=== PATIENT | female | born 1995 | race Caucasian/White ===

== ENCOUNTER 2017-10-09 03:48 | Inpatient (IN) | payer OTHER ==
[~2017-10-09] VITALS: Ht 157.5 cm; Wt 73.5 kg
[2017-10-09] MEDS ORDERED: SYMBICORT 80/10.2 GM (04:02)
== END 2017-10-15 19:30 | disposition home or self-care (01) | DRG 194 ==
LOC: ER 03:48 → SEC-K 15:49 → MEDI 21:00
PROC: 3E0F7GC Introduction of Other Therapeutic Substance into Respiratory Tract, Via Natural or Artificial Opening (ICD-10-PCS; principal; 2017-10-09)
PROC: 4A033R1 Measurement of Arterial Saturation, Peripheral, Percutaneous Approach (ICD-10-PCS; 2017-10-09)
PROC: B54DZZZ Ultrasonography of Bilateral Lower Extremity Veins (ICD-10-PCS; 2017-10-09)
PROC: CB121ZZ Planar Nuclear Medicine Imaging of Lungs and Bronchi using Technetium 99m (Tc-99m) (ICD-10-PCS; 2017-10-10)
PROC: BW24Y0Z Computerized Tomography (CT Scan) of Chest and Abdomen using Other Contrast, Unenhanced and Enhanced (ICD-10-PCS; 2017-10-13)
DX: J18.9 Pneumonia, unspecified organism (principal); J45.52 Severe persistent asthma with status asthmaticus; J98.11 Atelectasis; R09.02 Hypoxemia